=== PATIENT | female | born 1965 | race Caucasian/White ===

== ENCOUNTER → 2016-04-03 | Outpatient (CLI) | payer OTHER ==
--- NOTE | 2016-04-03 18:30 | Diagnostic Imaging Report ---
INDICATION: Fell and felt pop in left knee in February. FINDINGS: Nonweightbearing view shows joint space to be mildly narrowed in the lateral compartment. There are no fractures demonstrated. Patellofemoral joint in good alignment. No chondrocalcinosis or loose bodies demonstrated. No soft tissue abnormalities are seen. IMPRESSION: Mild degenerative changes with no acute abnormalities demonstrated. Dictated by: Dictated on workstation # [id number]
--- NOTE | 2016-04-03 18:42 | Diagnostic Imaging Report ---
INDICATION: Left ankle pain AP, oblique, and lateral views of the left ankle were obtained. There is chronic change throughout the tarsal bones and talonavicular joint. There is plantar and posterior calcaneal spur. There is joint space narrowing of the ankle joint. There are soft tissue calcifications in the plantar soft tissues inferior to the calcaneus. There is no acute appearing bony abnormality. IMPRESSION: Chronic findings as above with no acute appearing bony abnormality. Dictated by: Dictated on workstation # [id number]
== END ==
LOC: RAD 15:51
PROVIDERS: ATTEND Nurse Practitioner Family
DX: M25.562 Pain in left knee (principal); M25.572 Pain in left ankle and joints of left foot
CPT/HCPCS: 73562; 73610